=== PATIENT | female | born 1940 | race Hispanic/Latino ===

== ENCOUNTER 2025-02-27 20:30 | Emergency (ER) | payer BC, MEDICARE ==
[~2025-02-27] VITALS: Ht 157.5 cm; Wt 40.8 kg
[2025-02-27] MEDS: SODIUM CHLORIDE 0.9% 1000ML 1,000 ML IV ONE (22:10)
[2025-02-28] MEDS ORDERED: CEFUROXIME500 MG PO (00:01)
[2025-02-28] MEDS: CEFTRIAXONE 1 GM VIAL IM ONE (00:13)
[2025-02-28 00:25] VITALS: PULSE 67; RESP 16; TEMP 98.6
[2025-02-28 00:27] VITALS: BP 185/77; PULSE 67; RESP 16; TEMP 98.6; O2SAT 97
== END 2025-02-28 00:31 | disposition home or self-care (01) ==
LOC: FSED 20:44
DX: R53.1 Weakness (principal); N39.0 Urinary tract infection, site not specified; I10 Essential (primary) hypertension; E78.5 Hyperlipidemia, unspecified; Z86.73 Personal history of transient ischemic attack (TIA), and cerebral infarction without residual deficits
CPT/HCPCS: 74176; 80053; 85025; 99284; J0696